=== PATIENT | female | born 1980 | race Caucasian/White ===

== ENCOUNTER → 2020-02-06 12:57 | Outpatient (CLI) | payer OTHER | END | disposition home or self-care (01) | LOC: LAB 12:57 | PROVIDERS: ATTEND Radiology Diagnostic Radiology | DX: N20.0 Calculus of kidney (principal) ==

== ENCOUNTER 2020-02-06 17:00 | Inpatient (IN) | payer OTHER ==
[~2020-02-06] VITALS: Ht 162.6 cm; Wt 77.1 kg
[2020-02-08] MEDS ORDERED: PERCOCET 5-3251 EACH PO (10:24)
== END 2020-02-08 12:32 | disposition home or self-care (01) | DRG 343 ==
LOC: ER 17:00 → SEC-K 17:34 → SURH 23:03
PROVIDERS: ADMIT Surgery; ATTEND Surgery
PROC: 0DTJ4ZZ Resection of Appendix, Percutaneous Endoscopic Approach (ICD-10-PCS; principal; 2020-02-06 17:00)
DX: K35.890 Other acute appendicitis without perforation or gangrene (principal); Z20.828 Contact with and (suspected) exposure to other viral communicable diseases

== ENCOUNTER → 2020-02-06 | Outpatient (CLI) | payer OTHER ==
[~2020-02-06] MED LIST: PERCOCET 5-3251 EACH PO
== END | disposition home or self-care (01) ==
LOC: TOM 14:32
PROVIDERS: ATTEND Obstetrics & Gynecology Maternal & Fetal Medicine
DX: K36 Other appendicitis (principal); R10.31 Right lower quadrant pain

== ENCOUNTER 2022-05-04 19:42 | Emergency (ER) | payer OTHER ==
[~2022-05-04] VITALS: Ht 160 cm; Wt 64.9 kg
== END 2022-05-04 22:11 | disposition home or self-care (01) ==
LOC: ER 19:42
DX: N93.9 Abnormal uterine and vaginal bleeding, unspecified (principal); N83.202 Unspecified ovarian cyst, left side; N83.201 Unspecified ovarian cyst, right side; Z91.013 Allergy to seafood

== ENCOUNTER 2022-06-20 09:45 | Inpatient (IN) | payer OTHER ==
[~2022-06-20] VITALS: Ht 160 cm; Wt 65.3 kg
[2022-06-22] MEDS ORDERED: TRAM1TAB98 PO (13:13)
[2022-06-22] MEDS ORDERED: COLACE100 MG PO (13:13)
[2022-06-22] MEDS ORDERED: LOVENOX40 MG/0.4 SUBCUTANEO (13:13)
== END 2022-06-23 09:38 | disposition home or self-care (01) | DRG 741 ==
LOC: O/R 06-22 06:49 → OB/GYN 06-22 09:45
PROVIDERS: ADMIT Obstetrics & Gynecology Gynecologic Oncology; ATTEND Obstetrics & Gynecology Gynecologic Oncology
PROC: 0UT74ZZ Resection of Bilateral Fallopian Tubes, Percutaneous Endoscopic Approach (ICD-10-PCS; 2022-06-22)
PROC: 07BC4ZZ Excision of Pelvis Lymphatic, Percutaneous Endoscopic Approach (ICD-10-PCS; 2022-06-22)
PROC: 0UT94ZZ Resection of Uterus, Percutaneous Endoscopic Approach (ICD-10-PCS; principal; 2022-06-22 10:15)
DX: C53.0 Malignant neoplasm of endocervix (principal); N80.03 Adenomyosis of the uterus; Z20.822 Contact with and (suspected) exposure to COVID-19

== ENCOUNTER 2023-05-30 15:55 | Emergency (ER) | payer OTHER ==
[~2023-05-30] VITALS: Ht 160 cm; Wt 68.9 kg
[~2023-05-30 15:55] MED LIST changes: +COLACE100 MG PO; +LOVENOX40 MG/0.4 SUBCUTANEO; +TRAM1TAB98 PO
[2023-05-30] MEDS ORDERED: GLUMETZA500 MG PO (16:14)
[2023-05-30 17:50] LABS: PH,URINE 6.5 (5.0-8.0); URINE APPEARANCE Clear; URINE BILIRRUBIN Negative (NEGATIVE); URINE BLOOD Negative; URINE COLOR Yellow; URINE GLUCOSE Negative (NEGATIVE); URINE LEUKOCYTE Negative; URINE NITRATE Negative; URINE PROTEIN Negative (NEGATIVE); URINE UROBILINOGEN 0.2 E.U./dl
[2023-05-30 17:51] LABS: HEMATOCRIT 38.1 % (36.0-45.00); HEMOGLOBIN 12.7 g/dL (12.0-15.00); MEAN CELL VOLUME 85.1 fL (80.00-100.00); MEAN CORPUSCULAR HEMOGLOBIN 28.4 pg (27.00-32.0); MEAN CORPUSCULAR HGB CONC 33.3 g/dl (32.0-36.0); PLATELET COUNT 276 K/uL (150-450); RED BLOOD COUNT 4.47 M/uL (4.00-6.00); RED CELL DISTRIBUTION WIDTH 13.7 % (11.5-14.5); URINE BACTERIA 28.9 uL (0.0-1933)
[2023-05-30 17:53] LABS: URINE EPITHELIAL CELLS 1.2 uL (0.0-38.8); URINE RBC 1.1 uL (0.0-20.8); URINE WBC 0.3 uL (0.0-23.2)
[2023-05-30 20:19] LABS: ALBUMIN 3.8 gm/dL (3.4-5.0); BILIRUBIN TOTAL 0.35 mg/dL (0.3-1.2); CALCIUM 9.1 mg/dL (8.5-10.1); CREATININE SERUM 0.66 mg/dL (0.55-1.02); GFR 97.74; GLOBULINA 3.8 G/DL (2.4-3.5); POTASSIUM 4.13 mEq/L (3.5-5.1); TOTAL PROTEIN 7.6 gm/dL (6.4-8.2)
[2023-05-30 20:22] LABS: C-REACTIVE PROTEIN 0.61 MG/DL (0.00-0.29)
[2023-05-30] MEDS ORDERED: DICLOFENAC SODI75 MG PO (22:54)
== END 2023-05-30 23:29 ==
LOC: ER 15:56
PROVIDERS: Emergency Medicine; Nurse Practitioner Family
DX: R10.2 Pelvic and perineal pain (principal); J45.909 Unspecified asthma, uncomplicated; Z85.42 Personal history of malignant neoplasm of other parts of uterus; E16.1 Other hypoglycemia; Z91.013 Allergy to seafood; K63.89 Other specified diseases of intestine; R10.32 Left lower quadrant pain